=== PATIENT | male | born 1950 | race Caucasian/White ===

== ENCOUNTER 2016-11-24 15:30 | Emergency (ER) | payer OTHER, BC ==
[~2016-11-24] VITALS: Ht 170.2 cm; Wt 79.3 kg
[~2016-11-24 15:30] MED LIST: CIPRO500 MG PO; CORGARD20 MG PO; CYANOCOBAL1000 MCG/2 IM; ENTOCORT EC3 MG PO; IRON325 M1 PO; KLOR-CON20 MEQ PO; LACTULOSE10 GM/151 PO; LASIX20 MG PO; LEVETIRACETAM500 MG PO; METHADONE5 MG PO; MIDAMOR5 MG PO; Methadone PO; NADOLOL80 MG PO; PENTASA500 MG PO; PERCOCET 10/1 TABLET PO; PROTONIX40 MG PO; Pentasa PO; Protonix PO; TOPAMAX100 MG PO; TOPAMAX200 MG PO; TOPAMAX50 MG PO; VITAMIN D35000 UNI1 PO; XIFAXAN550 MG PO
[2016-11-24 17:31] LABS: HEMATOCRIT 38.4 % (38.0-50.0); MCH 30.3 PG (29.0-34.0); MCHC 34.4 G/DL (30.0-36.0); MCV 88.1 FL (86-99); MEAN PLAT.VOLUME 9.4 uM^3 (9.0-12.4); PLATELET COUNT 100 K/uL (156-360); RBC DIS.WIDTH-CV 14.5 % (11.8-14.6); RBC DIS.WIDTH-SD 45.5 % (39-53); RED BLOOD COUNT 4.36 M/uL (4.00-5.50); WHITE BLOOD COUNT 3.9 K/uL (4.1-10.2)
[2016-11-24 17:44] LABS: CHLORIDE 116 mEq/L (99-109); POTASSIUM 3.4 mEq/L (3.7-5.4); SODIUM 142 mEq/L (136-147)
[2016-11-24 17:46] LABS: GLUCOSE 104 mg/dL (70-99); INTER. NORMALIZED RATIO 3.7; PROTHROMBIN TIME 38.8 (9.2-11.2)
[2016-11-24 17:47] LABS: ANION GAP 8 MEQ/L (2-14)
[2016-11-24 17:49] LABS: GFR ESTIMATE (CALCULATED) > 59 mL/min/
[2016-11-24 17:50] LABS: UREA NITROGEN (BUN) 18 mg/dL (9-23)
[2016-11-24 18:55] LABS: TOTAL BILIRUBIN 1.2 mg/dL (0.0-1.0)
[2016-11-24 18:57] LABS: ALKALINE PHOSPHATASE 114 IU/L (3-129)
[2016-11-24 18:58] LABS: DIRECT BILIRUBIN 0.4 mg/dL (0.0-0.3)
[2016-11-24 19:20] VITALS: BP 134/89
== END 2016-11-24 19:23 | disposition home or self-care (01) ==
LOC: EME 15:30
DX: H11.33 Conjunctival hemorrhage, bilateral (principal); K74.60 Unspecified cirrhosis of liver; K50.90 Crohn's disease, unspecified, without complications; G89.29 Other chronic pain; M54.5 Low back pain; Z86.718 Personal history of other venous thrombosis and embolism; Z79.01 Long term (current) use of anticoagulants; Z87.891 Personal history of nicotine dependence; Z98.1 Arthrodesis status; Z57.5 Occupational exposure to toxic agents in other industries
CPT/HCPCS: 80048; 80076; 85027; 85610; 86900; 86901; 99281; 99284